=== PATIENT | male | born 1935 | race Caucasian/White ===

== ENCOUNTER 2020-01-17 10:55 | Outpatient (CLI) | payer MEDICARE ==
--- NOTE | 2020-01-17 11:50 | ULT ---
RENAL ULTRASOUND: DATE: 01/17/2020. PROVIDED CLINICAL HISTORY: Chronic kidney disease. FINDINGS: The right kidney measures about 9.1 x 4 x 4.3 cm and demonstrates no evidence for hydronephrosis or m ass. The left kidney measures about 8.6 x 4 x 4.2 cm and demonstrates no evidence for hydronephrosis or so lid mass. Simple-appearing exophytic cyst arises from the left kidney measuring approximately 5.1 cm . The urinary bladder appears sonographically unremarkable. Prevoid bladder volume is about 52 cc. Th e bladder is not visible post void. IMPRESSION: No evidence for hydronephrosis. POS: [facility]
== END 2020-01-17 10:56 | disposition home or self-care (01) ==
LOC: MADLAB 10:55
PROVIDERS: ATTEND Internal Medicine Nephrology
DX: N18.3 Chronic kidney disease, stage 3 (moderate) (principal)
CPT/HCPCS: 76770

== ENCOUNTER 2020-12-01 12:22 | Outpatient (CLI) | payer MEDICARE ==
[2020-12-01 13:07] LABS: ALT (SGPT) 14 U/L (8-55); AST (SGOT) 14 U/L (5-34); Albumin 4.3 g/dL (3.4-4.8); Alkaline Phosphatase 57 U/L (40-110); Anion Gap 16 mmol/L (10-20); BUN (Urea Nitrogen) 15 mg/dL (8.4-25.7); Calc. Creatinine Clearance 0 mL/min (70-130); Calcium 9.5 mg/dL (7.8-10.44); Carbon Dioxide 28 mmol/L (23-31); Cardiac Risk 2.9 (Less than 4.5); Chloride 100 mmol/L (98-107); Cholesterol 156 mg/dl (< 200 Desired); Globulin 2.5 g/dL (2.4-3.5); Glucose 88 mg/dL (83-110); HDL Cholesterol 53 mg/dL (>60 Neg Risk); LDL Cholesterol, Calculated 79 mg/dL; Potassium 3.5 mmol/L (3.5-5.1); Protein, Total 6.8 g/dL (5.8-8.1); Sodium 140 mmol/L (136-145); Triglycerides 121 mg/dL (Less than 150)
== END 2020-12-01 12:23 | disposition home or self-care (01) ==
LOC: MADLAB 12:22
PROVIDERS: ATTEND Family Medicine
DX: E87.6 Hypokalemia (principal)
CPT/HCPCS: 36415; 80053; 80061

== ENCOUNTER 2021-01-07 10:17 | Outpatient (CLI) | payer MEDICARE ==
[2021-01-07 11:35] LABS: Anion Gap 13 mmol/L (10-20); BUN (Urea Nitrogen) 19 mg/dL (8.4-25.7); Calc. Creatinine Clearance 0 mL/min (70-130); Calcium 8.8 mg/dL (7.8-10.44); Carbon Dioxide 22 mmol/L (23-31); Chloride 109 mmol/L (98-107); Glucose 116 mg/dL (83-110); Potassium 3.5 mmol/L (3.5-5.1); Sodium 140 mmol/L (136-145)
== END 2021-01-07 10:18 | disposition home or self-care (01) ==
LOC: MADLAB 10:17
PROVIDERS: ATTEND Family Medicine
DX: I10 Essential (primary) hypertension (principal)
CPT/HCPCS: 36415; 80048

== ENCOUNTER 2024-05-09 09:05 | Emergency (ER) | payer MEDICARE ==
[2024-05-09] MEDS ORDERED: Lidocaine 4% Patch ONE (09:30)
[2024-05-09] MEDS ORDERED: Bacitracin 1 PK ONE (09:36)
== END 2024-05-09 11:03 | disposition home or self-care (01) ==
LOC: MADERS 09:05
DX: S40.812A Abrasion of left upper arm, initial encounter (principal); M54.50 Low back pain, unspecified; M54.6 Pain in thoracic spine; I12.9 Hypertensive chronic kidney disease with stage 1 through stage 4 chronic kidney disease, or unspecified chronic kidney disease; N18.9 Chronic kidney disease, unspecified; E78.5 Hyperlipidemia, unspecified; Z79.899 Other long term (current) drug therapy; W06.XXXA Fall from bed, initial encounter
CPT/HCPCS: 71250; 72131

== ENCOUNTER 2025-04-29 13:32 | Outpatient (CLI) | payer MEDICARE ==
[2025-04-29 14:45] LABS: ALT (SGPT) 11 U/L (Less than 45); AST (SGOT) 19 U/L (11-34); Albumin 4.3 g/dL (3.1-4.5); Alkaline Phosphatase 64 U/L (40-110); Anion Gap 18 mmol/L (10-20); BUN (Urea Nitrogen) 29 mg/dL (8.4-25.7); Bilirubin, Total 0.4 mg/dL (0.3-1.2); Calc. Creatinine Clearance 0 mL/min (70-130); Calcium 9.3 mg/dL (7.8-10.44); Carbon Dioxide 22 mmol/L (23-31); Chloride 107 mmol/L (98-107); Globulin 2.5 g/dL (2.4-3.5); Glucose 111 mg/dL (83-110); Potassium 4.1 mmol/L (3.5-5.1); Sodium 143 mmol/L (136-145)
[2025-04-29 14:54] LABS: Hematocrit 40.4 % (42.0-52.0); Hemoglobin 13.1 g/dL (14.0-18.0); Mean Corpuscular Hemoglobin 28.5 pg (27.0-31.0); Mean Corpuscular Volume 87.9 fl (78.0-98.0); Red Blood Cell (RBC) Count 4.59 mill/uL (4.70-6.10); White Blood Cell (WBC) Count 13.3 10x3/uL (4.8-10.8)
[2025-04-29 14:55] LABS: MDiff Complete? YES; Platelet Adequacy Comment Appears Adequate; Platelet Count 189 10x3/uL (130-400)
== END 2025-04-29 13:33 | disposition home or self-care (01) ==
LOC: MADLAB 13:32
PROVIDERS: ATTEND Internal Medicine Hematology & Oncology
DX: C91.10 Chronic lymphocytic leukemia of B-cell type not having achieved remission (principal)
CPT/HCPCS: 36415; 80053; 85025

== ENCOUNTER 2025-05-29 12:51 | Outpatient (CLI) | payer MEDICARE ==
[2025-05-29 13:29] LABS: ALT (SGPT) 14 U/L (Less than 45); AST (SGOT) 16 U/L (11-34); Albumin 4.1 g/dL (3.1-4.5); Alkaline Phosphatase 62 U/L (40-110); Anion Gap 13 mmol/L (10-20); BUN (Urea Nitrogen) 24 mg/dL (8.4-25.7); Bilirubin, Total 0.4 mg/dL (0.3-1.2); Calc. Creatinine Clearance 0 mL/min (70-130); Calcium 9.0 mg/dL (7.8-10.44); Carbon Dioxide 24 mmol/L (23-31); Chloride 105 mmol/L (98-107); Globulin 2.5 g/dL (2.4-3.5); Glucose 110 mg/dL (83-110); Potassium 4.0 mmol/L (3.5-5.1); Sodium 138 mmol/L (136-145)
[2025-05-29 14:20] LABS: Hematocrit 40.7 % (42.0-52.0); Hemoglobin 13.0 g/dL (14.0-18.0); MDiff Complete? YES; Manual Diff?? YES; Mean Corpuscular Hemoglobin 28.5 pg (27.0-31.0); Mean Corpuscular Volume 89.6 fl (78.0-98.0); Platelet Count 163 10x3/uL (130-400); Red Blood Cell (RBC) Count 4.54 mill/uL (4.70-6.10); White Blood Cell (WBC) Count 16.7 10x3/uL (4.8-10.8)
[2025-05-29 14:21] LABS: Platelet Adequacy Comment Appears Adequate
== END 2025-05-29 12:52 | disposition home or self-care (01) ==
LOC: MADLAB 12:51
PROVIDERS: ATTEND Internal Medicine Hematology & Oncology
DX: C91.10 Chronic lymphocytic leukemia of B-cell type not having achieved remission (principal)
CPT/HCPCS: 36415; 80053; 85025

== ENCOUNTER 2025-06-27 11:18 | Outpatient (CLI) | payer MEDICARE ==
[2025-06-27 11:49] LABS: ALT (SGPT) 19 U/L (Less than 45); AST (SGOT) 28 U/L (11-34); Albumin 4.2 g/dL (3.1-4.5); Alkaline Phosphatase 82 U/L (40-110); Anion Gap 16 mmol/L (10-20); BUN (Urea Nitrogen) 18 mg/dL (8.4-25.7); Bilirubin, Total 0.5 mg/dL (0.3-1.2); Calc. Creatinine Clearance 0 mL/min (70-130); Calcium 9.5 mg/dL (7.8-10.44); Carbon Dioxide 25 mmol/L (23-31); Chloride 103 mmol/L (98-107); Globulin 2.6 g/dL (2.4-3.5); Glucose 83 mg/dL (83-110); Potassium 3.9 mmol/L (3.5-5.1); Sodium 140 mmol/L (136-145)
[2025-06-27 12:22] LABS: Hematocrit 43.1 % (42.0-52.0); Hemoglobin 13.3 g/dL (14.0-18.0); MDiff Complete? YES; Manual Diff?? YES; Mean Corpuscular Hemoglobin 27.9 pg (27.0-31.0); Mean Corpuscular Volume 90.5 fl (78.0-98.0); Platelet Count 212 10x3/uL (130-400); Red Blood Cell (RBC) Count 4.77 mill/uL (4.70-6.10); White Blood Cell (WBC) Count 16.4 10x3/uL (4.8-10.8)
[2025-06-27 12:24] LABS: Platelet Adequacy Comment Appears Adequate
== END 2025-06-27 11:19 | disposition home or self-care (01) ==
LOC: MADLAB 11:18
PROVIDERS: ATTEND Internal Medicine Hematology & Oncology
DX: C91.10 Chronic lymphocytic leukemia of B-cell type not having achieved remission (principal)
CPT/HCPCS: 36415; 80053; 85025